=== PATIENT | male | born 1990 | race Caucasian/White ===

== ENCOUNTER 2019-11-24 12:43 | Emergency (ER) | payer OTHER, SELFPAY ==
[2019-11-24 12:44] VITALS: BP 119/75; PULSE 62; RESP 16; TEMP 36.6; O2SAT 98; BMI 18.1
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
[2019-11-24] MEDS: Diphth,Pertuss(Acell),Tet Vac 0.5 ML Vial IM (13:32)
--- NOTE | 2019-11-24 13:53 | ED.DEP ---
ED Disposition - Plan for ED Patient: Instructions: ED Clavicle Fracture, ED FRACTURE Elbow Referrals: NOT,DEFINED [NON-STAFF] - [place] MD [STAFF PHYSICIAN] - 3-5 Days
--- NOTE | 2019-11-24 14:06 | ED.RN ---
DR MCKAY PAGED FOR DR RODRIGUEZ
[2019-11-24 14:27] VITALS: RESP 16
== END 2019-11-24 14:28 | disposition home or self-care (01) ==
PROVIDERS: Emergency Provider Emergency Medicine
DX: S42.001A Fracture of unspecified part of right clavicle, initial encounter for closed fracture (principal); S42.401A Unspecified fracture of lower end of right humerus, initial encounter for closed fracture; S40.811A Abrasion of right upper arm, initial encounter; Y93.52 Activity, horseback riding; V80.010A Animal-rider injured by fall from or being thrown from horse in noncollision accident, initial encounter
CPT/HCPCS: 29105; 71046; 73030; 73080; 90471; 90715; 99283